=== PATIENT | male | born 1945 | race Caucasian/White ===

== ENCOUNTER → 2017-11-08 | Outpatient (CLI) | payer MEDICARE, OTHER | LOC: GMAJ 08:36 | PROVIDERS: ATTEND Family Medicine | DX: R26.0 Ataxic gait (principal); E78.2 Mixed hyperlipidemia ==

== ENCOUNTER → 2019-08-21 | Outpatient (CLI) | payer MEDICARE, OTHER | LOC: GMAJ 10:37 | PROVIDERS: ATTEND Family Medicine | DX: Z12.5 Encounter for screening for malignant neoplasm of prostate (principal) ==

== ENCOUNTER → 2019-08-21 | Outpatient (CLI) | payer MEDICARE, OTHER ==
--- NOTE | 2019-08-23 15:51 | CT ---
EXAM DESCRIPTION: Maxillofacial w/wo Contrast: Computed Tomography. CLINICAL HISTORY: 74 years Male CHRONIC MAXILLARY SINUSITIS COMPARISON: CT maxillofacial bones 08 March 2015. TECHNIQUE: Spiral, axial 2.5 x 2.5 mm scans through maxillary facial bones with and without 75 mL Optiray 320 nonionic IV contrast. Axial coronal and sagittal 2.0 mm reconstructions. Total Exam DLP: 496.99 mGy-cm. This exam was performed according to our departmental CT dose-optimization program which includes automated exposure control, adjustment of the mA and/or kV according to patient size and/or use of iterative reconstruction technique; to reduce radiation dose to as low as reasonably achievable (ALARA). FINDINGS: Minimal mucoperiosteal thickening in the lateral base of the left antrum. Minimal thickening on the right. No air-fluid levels bilaterally and no abnormal enhancement. Bilateral ostiomeatal units are patent. Minimal mucoperiosteal thickening in the bilateral ethmoid air cells. No abnormal contrast enhancement. Hypoplastic bilateral frontal sinuses with no significant mucosal thickening and no air-fluid levels or abnormal contrast enhancement. Small bilateral sphenoid air cells. Sphenoid nasal ostia are patent. No abnormal enhancement. Mild bilateral turbinate mucosal hypertrophy. Normal enhancement. Loly bullosa right middle turbinate. Minimal narrowing of the right nasal passage. Midline nasal septum. paired nasal bones and anterior maxillary spine are intact. Normal enhancement. Mastoid air cells are well aerated. No mass or abnormal enhancement or air in the orbits. Contrast enhancement in the [place] is unremarkable. No significant mass effect or shift or abnormal contrast enhancement in the base of the brain. IMPRESSION: Mucoperiosteal thickening minimal in the bilateral maxillary antra, more left than right. This is progressed since the prior study. No air-fluid levels and no abnormal enhancement. Loly bullosa in the right middle turbinate with minimal turbinate mucosal hypertrophy bilaterally. Minimal narrowing of the right nasal passageway. No abnormal contrast enhancement. Electronically signed by: Filippo Pabon MD 08/23/2019 3:49 PM [employer]
== END ==
LOC: CT 10:30
PROVIDERS: ATTEND Family Medicine
DX: J32.0 Chronic maxillary sinusitis (principal); J34.9 Unspecified disorder of nose and nasal sinuses; Z12.5 Encounter for screening for malignant neoplasm of prostate; I10 Essential (primary) hypertension; E78.2 Mixed hyperlipidemia

== ENCOUNTER → 2020-02-16 | Outpatient (CLI) | payer MEDICARE, OTHER | LOC: GMAJ 10:34 | PROVIDERS: ATTEND Family Medicine | DX: Z79.899 Other long term (current) drug therapy (principal) ==

== ENCOUNTER → 2020-04-25 | Outpatient (CLI) | payer MEDICARE, OTHER | LOC: GMAJ 11:14 | PROVIDERS: ATTEND Family Medicine | DX: Z79.899 Other long term (current) drug therapy (principal); I26.99 Other pulmonary embolism without acute cor pulmonale; I10 Essential (primary) hypertension; E78.2 Mixed hyperlipidemia ==

== ENCOUNTER → 2020-08-22 | Outpatient (CLI) | payer MEDICARE, OTHER | LOC: GMAJ 10:16 | PROVIDERS: ATTEND Family Medicine | DX: Z12.5 Encounter for screening for malignant neoplasm of prostate (principal) ==

== ENCOUNTER → 2020-08-24 | Outpatient (CLI) | payer MEDICARE, OTHER | LOC: GMAJ 12:10 | PROVIDERS: ATTEND Family Medicine | DX: R74.01 Elevation of levels of liver transaminase levels (principal) ==

== ENCOUNTER → 2020-09-01 | Outpatient (CLI) | payer MEDICARE, OTHER ==
--- NOTE | 2020-09-02 08:58 | US ---
EXAM DESCRIPTION: Abdomen,Complete: Ultrasound. CLINICAL HISTORY: 75 years Male ELEVATION OF LEVELS OF LIVER TRANSAMINASE COMPARISON: None Available. TECHNIQUE: Transabdominal scanning: grayscale and Doppler modes.. Technically difficult study due to patient body habitus. FINDINGS: Gallbladder: Cholecystectomy no fluid in the gallbladder fossa. Abdominal wall Non-tender with transducer pressure. Common bile duct: caliber 7.6 mm minimally dilated. Liver: Echogenic circumscribed object in the right lobe measuring 1.3 x 1.2 x 1.1 cm, not vascular; otherwise usual echogenicity. Contour liver capsule smooth where seen. No fluid around the liver. Intrahepatic biliary ducts normal caliber. Doppler hepatopedal flow and normal caliber portal vein 10.8 mm.. Long axis right lobe 15.0 cm. Pancreas: Not well visualized pancreatic duct not seen. Complete abdominal aorta: Normal caliber from the proximal segment to the distal bifurcation.. IVC: visualized and normal caliber. Right kidney: long axis measures 11.2 cm; volume 195.8 mL. Cortical echogenicity heterogeneously decreased with prominent renal pyramids and lobulated capsule. 5.0 x 2.6 x 3.4 cm anechoic lobulated cyst. Normal cortical thickness. No echogenic stones; no hydronephrosis. Left kidney: long axis measures 12.0 cm; volume 223.7 mL. Cortical echogenicity is heterogeneously decreased with prominent renal pyramids and lobulated capsule.. Normal cortical thickness. No echogenic stones; no hydronephrosis. Spleen: Normal. No focal lesions.. 12.8 cm long axis. Other: None. IMPRESSION: 1. Liver unremarkable except for echogenic circumscribed object in the right lobe which may represent a hemangioma. Not vascular. If concern for hepatic mass, consider hepatic mass protocol by CT or MRI scan. No ascites. Physiologic ducts and vascularity. Pancreas not well visualized. 2. Prior cholecystectomy with no fluid in the gallbladder fossa. Abdominal wall not tender. Minimal dilation of the common bile duct post cholecystectomy. 3. Bilateral age-related changes in the kidneys with no echogenic stones or hydronephrosis. 5.0 cm cyst in the right kidney. Electronically signed by: Filippo Pabon MD 09/02/2020 8:56 AM [employer]
== END ==
LOC: US 13:54
PROVIDERS: ATTEND Family Medicine
DX: R74.01 Elevation of levels of liver transaminase levels (principal); K76.9 Liver disease, unspecified; N28.1 Cyst of kidney, acquired; Z90.49 Acquired absence of other specified parts of digestive tract; N28.89 Other specified disorders of kidney and ureter